=== PATIENT | male | born 2005 ===

== ENCOUNTER 2024-08-02 12:26 | Outpatient (AMB) | payer BC, SELFPAY ==
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
[2024-08-02 13:32] VITALS: BP 120/78; PULSE 72; O2SAT 95; BMI 30.7
== END 2024-08-02 14:38 | disposition home or self-care (01) ==
PROVIDERS: Visit Provider Physician Assistant
DX: J18.9 Pneumonia, unspecified organism (principal)

== ENCOUNTER 2024-08-02 12:26 | Outpatient (REF) | payer BC, SELFPAY ==
[2024-08-02 17:00] LABS: Influenza A PCR NEGATIVE (Negative); Influenza B PCR NEGATIVE (Negative); Resp Syncy Virus RNA Qual PCR NEGATIVE (Negative); SARS COV2 PCR INHOUSE NEGATIVE (Negative)
== END 2024-08-02 12:27 | disposition home or self-care (01) ==
LOC: HO.LAB 12:26
PROVIDERS: Physician Assistant
DX: J06.9 Acute upper respiratory infection, unspecified (principal)
CPT/HCPCS: 0241U